=== PATIENT | female | born 1995 | race African-American/Black ===

== ENCOUNTER 2017-09-29 12:08 | Emergency (ER) | payer BC, MEDICAID, SELFPAY ==
[2017-09-29] MEDS ORDERED: Acetaminophen 500 MG TAB ONE (13:12)
[2017-09-29] MEDS ORDERED: Metoclopramide HCl 10 MG/2 ML VIAL ONE (13:12)
[2017-09-29] MEDS ORDERED: Ondansetron HCl/PF 4 MG/2 ML Vial ONE (13:12)
[2017-09-29 13:55] LABS: BHCG - Serum Negative (NEGATIVE); Pregs Control Background? CLEAR/WHITE (CLR/WHITE); Pregs Control Bar Appear? YES (CONTROL BAR)
== END 2017-09-29 14:21 | disposition home or self-care (01) ==
LOC: ERS 12:08
DX: G43.909 Migraine, unspecified, not intractable, without status migrainosus (principal); F41.9 Anxiety disorder, unspecified
CPT/HCPCS: 84703; 96365; 96375; J2405; J2765

== ENCOUNTER 2017-10-01 21:49 | Emergency (ER) | payer SELFPAY ==
[2017-10-01] MEDS ORDERED: Metoclopramide HCl 10 MG/2 ML VIAL ONE (23:13)
[2017-10-01] MEDS ORDERED: diphenhydrAMINE 50 MG/ML VIAL ONE (23:13)
== END 2017-10-02 00:25 | disposition home or self-care (01) ==
LOC: ERS 21:49
DX: R51 Headache (principal); F41.9 Anxiety disorder, unspecified
CPT/HCPCS: 96365; 96375; J1200; J2765